=== PATIENT | female | born 1935 | race Caucasian/White ===

== ENCOUNTER 2016-09-14 22:39 | Emergency (ER) | payer OTHER, BC ==
[~2016-09-14] VITALS: Ht 149.9 cm; Wt 74.8 kg
[~2016-09-14 22:39] MED LIST: BENADRYL ALLERG25 MG; IRON325 PO; LASIX 40 MG TAB40 M2 PO; LEVAQUIN 500 M500 M2 PO; MEDROL DOSPAK21 TAB PO; POTASSIUM20 PO; PROTONIX40 M4 PO; SYNTHROID300 MCG PO; TESSALON PERLE100 MG PO; VENTOLIN HFA 1818 GM INH; ZPAK
== END 2016-09-15 00:56 | disposition home or self-care (01) ==
LOC: ER 22:39
DX: S01.01XA Laceration without foreign body of scalp, initial encounter (principal); S40.011A Contusion of right shoulder, initial encounter; F10.99 Alcohol use, unspecified with unspecified alcohol-induced disorder; Z90.10 Acquired absence of unspecified breast and nipple; Z98.890 Other specified postprocedural states; W01.198A Fall on same level from slipping, tripping and stumbling with subsequent striking against other object, initial encounter; Y93.89 Activity, other specified; Y92.89 Other specified places as the place of occurrence of the external cause; Y99.8 Other external cause status

== ENCOUNTER → 2016-11-01 | Outpatient (CLI) | payer OTHER, BC ==
[2016-11-01 11:27] LABS: CREATININE 0.7 mg/dL (0.6-1.0)
== END ==
LOC: CAT 10:47
PROVIDERS: Family Medicine
DX: J43.9 Emphysema, unspecified (principal); K80.20 Calculus of gallbladder without cholecystitis without obstruction; K20.9 Esophagitis, unspecified; R79.89 Other specified abnormal findings of blood chemistry

== ENCOUNTER 2018-07-14 18:14 | Emergency (ER) | payer OTHER, BC ==
[~2018-07-14] VITALS: Ht 149.9 cm; Wt 68.0 kg
[2018-07-14 22:19] VITALS: BP 141/66
== END 2018-07-14 21:15 | disposition home or self-care (01) ==
LOC: ER 18:14
DX: S01.411A Laceration without foreign body of right cheek and temporomandibular area, initial encounter (principal); Z90.49 Acquired absence of other specified parts of digestive tract; Z87.01 Personal history of pneumonia (recurrent); Z90.13 Acquired absence of bilateral breasts and nipples; W18.39XA Other fall on same level, initial encounter; Y93.89 Activity, other specified; Y92.89 Other specified places as the place of occurrence of the external cause; Y99.8 Other external cause status

== ENCOUNTER 2018-11-11 18:09 | Emergency (ER) | payer OTHER, BC ==
[~2018-11-11] VITALS: Ht 152.4 cm; Wt 73.9 kg
[2018-11-11 19:25] LABS: ABSOLUTE NEUTROPHILS 5.6 thou/uL (1.4-8.2); BASOPHILS 0.7 % (0.0-2.0); EOSINOPHILS 1.9 % (0.0-3.0); HEMATOCRIT 34.6 % (37.0-47.0); HEMOGLOBIN 11.8 gm/dL (12.0-15.0); LYMPHOCYTES 15.4 % (24.0-44.0); MCHC 34.1 g/dL (28.0-37.0); MCV 90.8 fL (80.0-100.0); MONOCYTES 6.8 % (1.0-8.0); PLATELET COUNT 264 thou/uL (150-400); POLYS 75.2 % (36.0-66.0); RBC 3.81 mil/uL (4.20-5.00); RDW 13.3 % (10.5-14.5); WBC 7.4 thou/uL (4.0-11.0)
[2018-11-11 19:35] LABS: ANION GAP 5 mmol/L (7-16); BUN 15 mg/dL (7-18); CALCIUM 9.4 mg/dL (8.5-10.1); CHLORIDE 100 mmol/L (98-107); CO2 28 mmol/L (21-32); CREATININE 0.8 mg/dL (0.6-1.0); GLUCOSE 124 mg/dL (74-106); POTASSIUM 4.3 mmol/L (3.5-5.1); SODIUM 133 mmol/L (136-145)
[2018-11-11] MEDS ORDERED: FISH OIL 1,001000 M2 PO (19:40)
[2018-11-11 19:45] LABS: ALBUMIN 3.6 g/dL (3.4-5.0); LIPASE 126 U/L (73-393); SGOT 24 U/L (15-37); SGPT 14 U/L (30-65); TOTAL BILIRUBIN 0.7 mg/dL (<0.1-1.0); TOTAL PROTEIN 7.8 g/dL (6.4-8.2); TROPONIN-I <0.06 ng/mL (<0.06)
[2018-11-11 20:41] LABS: URINE BILIRUBIN NEGATIVE (Negative); URINE BLOOD NEGATIVE (Negative); URINE CLARITY CLEAR; URINE COLOR YELLOW; URINE GLUCOSE-RANDOM* NEGATIVE (Negative); URINE KETONES NEGATIVE (Negative); URINE LEUKOCYTES-REFLEX 1+ (Negative); URINE NITRITE-REFLEX NEGATIVE (Negative); URINE PROTEIN (DIPSTICK) NEGATIVE (Negative); URINE SPECIFIC GRAVITY 1.025 (1.005-1.035); URINE UROBILINOGEN 0.2 E.U./dl (0.2-1.0)
[2018-11-11 20:47] LABS: MUCUS 0-3 Light strn/LPF (None Seen); SQUAMOUS >10 Many /LPF (0-3)
[2018-11-11 20:48] LABS: BACTERIA-REFLEX 1-9 Few /HPF (None Seen); CASTS None Seen /LPF (None Seen); CRYSTALS None Seen /LPF (None Seen); URINE RBC 0-2 Rare /HPF (0-2); URINE WBC-REFLEX >25 Many /HPF (0-5)
[2018-11-11] MEDS ORDERED: KEFLEX500 M1 PO (21:08)
[2018-11-11 21:20] VITALS: BP 131/67
--- NOTE | 2018-11-12 08:16 | EKG ---
[place] [address] [facility] 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: PAULINA : 1935 Requested By: Rebel Goodman Order Number: [id number] MD: Roney Perez Measurements Intervals [place] Rate: 89 P: 59 [place]: 183 QRS: -24 QRSD: 84 T: 78 QT: 373 QTc: 454 Interpretive Statements Sinus rhythm Ventricular premature complex Possible anterior infarct, age indeterminate Inferior infarct, age indeterminate Compared to ECG 11/02/2015 07:02:13 Ventricular premature complex(es) now present Left ventricular hypertrophy now present Sinus tachycardia no longer present Inferior Q waves more prominent Electronically Signed On 11-12-2018 8:16:31 CDT by Rnoey Perez [email or web address] <ELECTRONICALLY SIGNED> By: Roney Perez MD, [facility] 11/12/18 0816 1836 1836 Roney Perez MD, [facility] /EPI
== END 2018-11-11 21:21 | disposition home or self-care (01) ==
LOC: ER 18:09
PROVIDERS: Emergency Medicine
DX: N39.0 Urinary tract infection, site not specified (principal); R55 Syncope and collapse; Z90.49 Acquired absence of other specified parts of digestive tract; Z90.13 Acquired absence of bilateral breasts and nipples

== ENCOUNTER → 2018-11-21 | Outpatient (CLI) | payer OTHER, BC ==
[~2018-11-21] MED LIST changes: +FISH OIL 1,001000 M2 PO; +KEFLEX500 M1 PO
== END ==
LOC: ULTRA 09:41
DX: K80.20 Calculus of gallbladder without cholecystitis without obstruction (principal); R16.0 Hepatomegaly, not elsewhere classified

== ENCOUNTER → 2018-11-29 | Outpatient (CLI) | payer OTHER, BC | LOC: RAD 16:40 | DX: J98.4 Other disorders of lung (principal); R07.9 Chest pain, unspecified ==

== ENCOUNTER 2018-12-14 20:32 | Emergency (ER) | payer OTHER, BC ==
[~2018-12-14] VITALS: Ht 152.4 cm; Wt 73.9 kg
[2018-12-14] MEDS ORDERED: ACETAMINOPHEN-1 EAC1 PO (21:10)
[2018-12-14] MEDS ORDERED: PRAVACHOL40 MG PO (21:10)
[2018-12-14 22:13] LABS: URINE BILIRUBIN NEGATIVE (Negative); URINE BLOOD NEGATIVE (Negative); URINE CLARITY CLEAR; URINE COLOR YELLOW; URINE GLUCOSE-RANDOM* NEGATIVE (Negative); URINE KETONES NEGATIVE (Negative); URINE LEUKOCYTES-REFLEX NEGATIVE (Negative); URINE NITRITE-REFLEX NEGATIVE (Negative); URINE PROTEIN (DIPSTICK) NEGATIVE (Negative); URINE SPECIFIC GRAVITY 1.025 (1.005-1.035); URINE UROBILINOGEN 0.2 E.U./dl (0.2-1.0)
[2018-12-14 22:22] LABS: ABSOLUTE NEUTROPHILS 5.2 thou/uL (1.4-8.2); BASOPHILS 1.3 % (0.0-2.0); EOSINOPHILS 1.3 % (0.0-3.0); HEMATOCRIT 31.9 % (37.0-47.0); HEMOGLOBIN 10.4 gm/dL (12.0-15.0); LYMPHOCYTES 25.4 % (24.0-44.0); MCH 30.6 pg (26.0-34.0); MCHC 32.7 g/dL (28.0-37.0); MCV 93.4 fL (80.0-100.0); MONOCYTES 8.1 % (1.0-8.0); PLATELET COUNT 314 thou/uL (150-400); POLYS 63.9 % (36.0-66.0); RBC 3.41 mil/uL (4.20-5.00); RDW 13.7 % (10.5-14.5); WBC 8.1 thou/uL (4.0-11.0)
[2018-12-14 22:34] LABS: ANION GAP 11 mmol/L (7-16); BUN 19 mg/dL (7-18); CALCIUM 9.6 mg/dL (8.5-10.1); CHLORIDE 101 mmol/L (98-107); CO2 24 mmol/L (21-32); CREATININE 0.8 mg/dL (0.6-1.0); GLUCOSE 102 mg/dL (74-106); POTASSIUM 3.7 mmol/L (3.5-5.1); SODIUM 136 mmol/L (136-145)
[2018-12-14 22:44] LABS: ALBUMIN 3.8 g/dL (3.4-5.0); LIPASE 113 U/L (73-393); SGOT 8 U/L (15-37); SGPT 8 U/L (30-65); TOTAL BILIRUBIN 0.5 mg/dL (<0.1-1.0); TOTAL PROTEIN 8.2 g/dL (6.4-8.2); TROPONIN-I <0.06 ng/mL (<0.06)
[2018-12-14 23:02] LABS: LARGE PLATELETS RARE
[2018-12-15] MEDS ORDERED: NORCO 5-325 TA1 EAC1 PO (02:28)
[2018-12-15 02:54] VITALS: BP 145/76
--- NOTE | 2018-12-16 14:14 | EKG ---
[place] [address] [email or web address] [address] ELECTROCARDIOGRAM REPORT Name: JENNA VALENCIA Room #: DEP [facility]#: [id number] ������������������ Admission: 12/14/18 ������������������ Attend Phys: Discharge: 12/15/18 ������������������ Date of : 39 Report #: [id number] ����������������������������������������������������������������� [id number] THIS REPORT FOR: //name// [facility] ED Test Date: 2018-12-14 Test Time: 20:58:50 Pat Name: JENNA VALENCIA Department: Room: Gender: F Control Director: WG : 1935 Requested By: Nghia Taveras Order Number: [id number] MD: Roney Perez Measurements Intervals [place] Rate: 96 P: 45 [place]: 157 QRS: -15 QRSD: 85 T: 73 QT: 346 QTc: 438 Interpretive Statements Sinus tachycardia Multiple ventricular premature complexes Left ventricular hypertrophy Poor septal R-wave progression Compared to ECG 11/11/2018 18:36:01 Premature ventricular complexes are now present Electronically Signed On 12-16-2018 14:13:58 CDT by Roney Perez [email or web address] ��������������������������������������������� <ELECTRONICALLY SIGNED> ���������������������������������������� By: Roney Perez MD, [facility] ��������������������������������������������� 12/16/18 1413 57 57 Roney Perez MD, [facility] /EPI
== END 2018-12-15 02:54 | disposition home or self-care (01) ==
LOC: ER 20:32
PROVIDERS: Emergency Medicine
DX: K80.20 Calculus of gallbladder without cholecystitis without obstruction (principal); Z90.49 Acquired absence of other specified parts of digestive tract; Z85.3 Personal history of malignant neoplasm of breast; Z90.13 Acquired absence of bilateral breasts and nipples

== ENCOUNTER 2018-12-16 19:21 | Inpatient (IN) | payer OTHER, BC ==
[~2018-12-16] VITALS: Ht 152.4 cm; Wt 73.9 kg
[2018-12-16 19:21] VITALS: BP 144/55
[~2018-12-16 19:21] MED LIST changes: +ACETAMINOPHEN-1 EAC1 PO; +NORCO 5-325 TA1 EAC1 PO; +PRAVACHOL40 MG PO
[2018-12-16 20:51] LABS: ABSOLUTE NEUTROPHILS 6.5 thou/uL (1.4-8.2); BASOPHILS 0.7 % (0.0-2.0); EOSINOPHILS 0.7 % (0.0-3.0); HEMATOCRIT 28.9 % (37.0-47.0); HEMOGLOBIN 9.6 gm/dL (12.0-15.0); LYMPHOCYTES 21.2 % (24.0-44.0); MCH 30.3 pg (26.0-34.0); MCHC 33.1 g/dL (28.0-37.0); MCV 91.6 fL (80.0-100.0); MONOCYTES 6.5 % (1.0-8.0); PLATELET COUNT 304 thou/uL (150-400); POLYS 70.9 % (36.0-66.0); RBC 3.15 mil/uL (4.20-5.00); RDW 13.8 % (10.5-14.5); WBC 9.2 thou/uL (4.0-11.0)
[2018-12-16 20:58] LABS: CALCIUM 9.4 mg/dL (8.5-10.1); CREATININE 0.8 mg/dL (0.6-1.0); POTASSIUM 3.3 mmol/L (3.5-5.1)
[2018-12-16 21:05] LABS: ALBUMIN 3.6 g/dL (3.4-5.0); TOTAL BILIRUBIN 0.4 mg/dL (<0.1-1.0); TOTAL PROTEIN 7.7 g/dL (6.4-8.2)
[2018-12-16 21:32] LABS: LARGE PLATELETS RARE
[2018-12-16 21:51] VITALS: BP 137/84
[2018-12-16 22:22] VITALS: BP 131/57
[2018-12-16 22:25] VITALS: BP 134/84
--- NOTE | 2018-12-17 04:32 | NUR ---
Patient arrived from the floor with daughter. AO*3; clam and pleasant; complains of pain in RUQ, 01/10. pain medication given and worked; paitent lying in bed with eyes closed, chest up and down. NPO after midnight, tolerating well. Lab reviewed. Will keep monitoring.
[2018-12-17 07:15] VITALS: BP 132/58
--- NOTE | 2018-12-17 15:41 | NUR ---
PT ADMITTED RELATED TO INTRACTABLE PAIN, LONNY. CM REVIEWED CHART AND SPOKE WITH CARE TEAM. CM MET WITH PT AT BEDSIDE THISDAY. PT IS A&O X4. CM ROLE INTRODUCED. PT INDICATED SHE LIVES IN A HOUSE ALONE WITH 1 STEP TO ENTER AND NO STEPS INSIDE. 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 PT INDICATED THAT SHE HADN'T USED ANY DME P[facility]TER LUGGAGE. PT INDICATED NOP DME OR HH HX. PT INIDCATED SHE PLANS TO RETURN HOME ONCE MEDICALLY STABLE. CM TO FOLOOW INDICATED WITH DC PLANNING. PT IS TO HAVE LAP LONNY TODAY AT 2:30.
--- NOTE | 2018-12-17 19:41 | NUR ---
PATIENT CAME BACK FORM SURGERY AT 1900, 4 LAP LONNY SITES, CLEAN, DRY, INTACT. REPORTING PAIN, ON A REGUALR DIET, ENCOURAGED TO EAT SO THAT PT CAN HAVE ORAL PAIN MEDS. REPORT GIVEN TO NIGHT NURSE. WILL CONTINUE TO ASSESS AND ASSIST WITH ADLs NEEDED.
[2018-12-17 19:55] VITALS: BP 144/64
[2018-12-17 23:42] VITALS: BP 134/118
[2018-12-18 03:34] VITALS: BP 146/71
--- NOTE | 2018-12-18 04:36 | NUR ---
ASSUMED CARE OF PT AT 1900HRS. THIS IS POST OP DAY 0. PT IS ALERT TO SELF AND PLEASANTLY CONFUSED. PT CALLS FOR HELP FREQUENTLY, CONSIDER MOVING PT CLOSER TO NURSES' STATION IF POSSIBLE. PT REPORTED SOME PAIN AND TREATED WITH PRN PAIN MEDS. LAP SITES X4 ARE INTACT. PT AMBULATED TO THE AND VOIDED. VSS AND NO S/S OF ACUTE DISTRESS. WILL CONTINUE TO MONITOR.
[2018-12-18 07:30] VITALS: BP 128/59
[2018-12-18 07:53] LABS: ABSOLUTE NEUTROPHILS 8.2 thou/uL (1.4-8.2); BASOPHILS 0.2 % (0.0-2.0); HEMATOCRIT 25.2 % (37.0-47.0); HEMOGLOBIN 8.6 gm/dL (12.0-15.0); LYMPHOCYTES 12.5 % (24.0-44.0); MCH 31.2 pg (26.0-34.0); MCHC 34.1 g/dL (28.0-37.0); MCV 91.6 fL (80.0-100.0); MONOCYTES 7.6 % (1.0-8.0); PLATELET COUNT 272 thou/uL (150-400); POLYS 79.7 % (36.0-66.0); RBC 2.75 mil/uL (4.20-5.00); RDW 13.2 % (10.5-14.5); WBC 10.2 thou/uL (4.0-11.0)
[2018-12-18 08:07] LABS: ALBUMIN 2.9 g/dL (3.4-5.0); CALCIUM 8.9 mg/dL (8.5-10.1); CREATININE 0.8 mg/dL (0.6-1.0); MAGNESIUM 1.6 mg/dL (1.8-2.4); PHOSPHORUS 2.8 mg/dL (2.5-4.9)
--- NOTE | 2018-12-18 14:17 | EKG ---
[address] [address] ELECTROCARDIOGRAM REPORT Name: JENNA VALENCIA Room #: 457- ADM IN M.R.#: [id number] ������������������ Admission: 12/16/18 ������������������ Attend Phys: Ld Reyes MD Discharge: ������������������ Date of : 39 Report #: [id number] ����������������������������������������������������������������� [id number] THIS REPORT FOR: //name// 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: CHIDI : 1935 Requested By: Handy Beyer Order Number: [id number] MD: Michael Dennis Measurements Intervals [place] Rate: 109 P: 83 [place]: 166 QRS: -18 QRSD: 86 T: 66 QT: 326 QTc: 440 Interpretive Statements Sinus tachycardia Left ventricular hypertrophy Anterior Q waves, possibly due to LVH Compared to ECG 12/14/2018 20:58:50 Q waves now present Ventricular premature complex(es) no longer present Electronically Signed On 12-18-2018 14:17:29 CDT by Michael Dennis [email or web address] ��������������������������������������������� <ELECTRONICALLY SIGNED> ���������������������������������������� By: Michael Dennis MD ��������������������������������������������� 12/18/18 1417 0910 0910 Michael Dennis MD /EPI
[2018-12-18 14:34] VITALS: BP 125/53
[2018-12-18 14:38] LABS: CALCIUM 9.4 mg/dL (8.5-10.1); CREATININE 0.7 mg/dL (0.6-1.0); MAGNESIUM 1.7 mg/dL (1.8-2.4); POTASSIUM 3.7 mmol/L (3.5-5.1)
[2018-12-18 15:34] VITALS: BP 125/53
--- NOTE | 2018-12-18 16:38 | NUR ---
CARE TEAM INDIATED THAT PT IS MEDICALLY STABLE TO DC HOME WITH NO NEEDS THIS DAY. NO OTHER CM INTERVENTION INDICATED. CASE CLOSED.
--- NOTE | 2018-12-18 20:10 | NUR ---
Received awake on bed. Due medications given as prescribed. A+O. On room air. Falls risk- falls bundle in place. On regular diet- tolerated well, no nausea, vomiting or abdominal pain noted. With NS at 80cc/hr infusing well at L hand. S/P Lap Appy- 4 surgical wounds with dermabond, C/D/I- no signs of infection noted. Pt with low potassium and low magnesium from AM lab draw- Dr Beyer aware and ordered oral Mg and K correction- medication given as prescribed. Tachycardia noted- EKG ordered by Dr Beyer- result relayed to Dr Beyer and Dr Reyes. With relative at bedside. Assisted in ADLs. Pt restless because she wants to go home- explained to her and relatives that still a/w discharge orders still. Dr Reyes called, lab draw to be done this PM- to call him back once results available then pt might go home if lab results are good- lab orders put in by Dr Reyes. Relayed results to Dr Reyes- pt can go home today- he'll put in discharge instructions. Called Dr Beyer for post op follow up and instructions and informed him that Dr Reyes is discharging pt. Discharge instructions, follow up schedule, post op follow up and instructions given and instructed to pt together with her daughter. IV removed. Pt fetched by volunteer transport, brought down via wheelchair with her personal belongings, drove home by her daughter.
--- NOTE | 2018-12-19 14:07 | PATH ---
[facility] [place] [address] [place] [address] PATHOLOGY RPT PROCEDURE Name: JENNA VALENCIA Room #: 457-P [facility] IN M.R.#: [id number] ������������������ Admission: 12/16/18 ������������������ Date of : 39 Discharge: 12/18/18 Report #: [id number] Path Case #: [id number] [facility] Accession Number: [id number] . 01 Material submitted: . gallbladder - GALLBLADDER . 01 Clinical history: . Symptomatic calculus of gallbladder without cholecystitis without obstruction . 02 Diagnosis: Gallbladder, cholecystectomy: - Mild chronic cholecystitis. - Cholelithiasis. . (IUV:mml; 12/19/2018) QL 12/19/2018 1037 Local . 02 Electronically signed: . Blossom Gleason MD, Pathologist NPI- [id number] . 01 Gross description: . The specimen is received in formalin, labeled "Jenna Valencia, gallbladder". Received is an intact gallbladder measuring 7.5 x 3.8 x 3.2 cm in greatest dimensions displaying a blue-akins serosal surface. Opening the specimen reveals a velvety, bile-stained mucosa with a gallbladder wall thickness of 0.1 cm. Calculi are present displaying a yellow-angel and smooth appearance, and no masses or lesions are noted grossly. Throat Cutter sections, to include the proximal margin, are submitted in cassette A1. (CAA; 12/18/2018) QA/QA 12/18/2018 1110 Local . 02 Pathologist provided ICD-10: K80.10 . 02 CPT . 534714 Specimen Comment: A courtesy copy of this report has been sent to Specimen Comment: [phone], . Specimen Comment: Report sent to / DR COLMENARES Performed at: [address], [place] [address] MD Trell Parnell MD Phone: [phone] Performed at: [address] [address] PATHOLOGY RPT PROCEDURE Name: JENNA VALENCIA LEVI Room #: 457-P DIS IN M.R.#: [id number] ������������������ Admission: 12/16/18 ������������������ Date of : 37 Discharge: 12/18/18 Report #: [id number] Path Case #: [id number] [facility] [address] [id number] MD Blossom Gleason MD Phone: [phone]
== END 2018-12-18 16:46 | disposition home or self-care (01) | DRG 418 ==
LOC: ER 19:21 → 4W 21:20 → EROBS 21:20 → 4W 22:10 → ENTRNSPT 12-18 16:28 → 4W 12-18 16:46
PROVIDERS: Physician Assistant; Surgery; ADMIT Family Medicine
PROC: 0FT44ZZ Resection of Gallbladder, Percutaneous Endoscopic Approach (ICD-10-PCS; principal; 2018-12-17)
DX: K80.10 Calculus of gallbladder with chronic cholecystitis without obstruction (principal); E44.1 Mild protein-calorie malnutrition; D64.9 Anemia, unspecified; E87.6 Hypokalemia; I50.9 Heart failure, unspecified; E83.42 Hypomagnesemia; Z87.01 Personal history of pneumonia (recurrent); Z79.899 Other long term (current) drug therapy; Z90.89 Acquired absence of other organs; Z90.13 Acquired absence of bilateral breasts and nipples; Z91.81 History of falling; Z87.440 Personal history of urinary (tract) infections; Z68.31 Body mass index [BMI] 31.0-31.9, adult
CPT/HCPCS: 10040; 10045; 50010; 50101; 50249; 50411; 50555; 50558; 51489; 52265; 52266; 53307; 53310; 53312; 54022; 54118; 55245; 56462; 56525; 56526; 62110; 62900; 70005

== ENCOUNTER 2018-12-21 11:17 | Inpatient (IN) | payer OTHER, BC ==
[~2018-12-21] VITALS: Ht 152.4 cm; Wt 65.8 kg
[2018-12-21 11:34] VITALS: BP 132/44
[2018-12-21 12:15] LABS: ABSOLUTE NEUTROPHILS 6.8 thou/uL (1.4-8.2); BASOPHILS 0.5 % (0.0-2.0); HEMATOCRIT 27.5 % (37.0-47.0); HEMOGLOBIN 9.3 gm/dL (12.0-15.0); LYMPHOCYTES 16.2 % (24.0-44.0); MCH 30.9 pg (26.0-34.0); MCHC 33.7 g/dL (28.0-37.0); MCV 91.8 fL (80.0-100.0); MONOCYTES 7.1 % (1.0-8.0); PLATELET COUNT 299 thou/uL (150-400); POLYS 75.2 % (36.0-66.0); RBC 2.99 mil/uL (4.20-5.00); RDW 13.9 % (10.5-14.5); WBC 9.1 thou/uL (4.0-11.0)
[2018-12-21] MEDS ORDERED: SYNTHROID175 MCG PO (12:26)
[2018-12-21 12:36] LABS: ALBUMIN 3.3 g/dL (3.4-5.0); CALCIUM 9.2 mg/dL (8.5-10.1); CREATININE 0.7 mg/dL (0.6-1.0); TOTAL BILIRUBIN 0.4 mg/dL (<0.1-1.0); TOTAL PROTEIN 7.2 g/dL (6.4-8.2)
[2018-12-21 16:31] VITALS: BP 140/63
--- NOTE | 2018-12-21 16:44 | NUR ---
1490 ED RN CALLED UNIT TO GIVE REPORT TO INPATIENT NURSE. ED NURSE WAS TOLD TO PRINT HAND OFF TOOL TO A DIFFERENT PRINTER AND INPATIENT NURSE WILL RETURN CALL FOR REPORT
--- NOTE | 2018-12-21 17:00 | NUR ---
PT RECALLED UNIT TO GIVE REPORT TO INPATIENT RN AND WAS PLACED ON HOLD FOR EXTENDED PERIOD OF TIME WITHOUT GETTING IN CONTACT WITH NURSE FOR REPORT
[2018-12-21 17:50] VITALS: BP 144/61
[2018-12-21 20:34] VITALS: BP 147/63
[2018-12-22 04:53] VITALS: BP 149/71
--- NOTE | 2018-12-22 07:43 | NUR ---
PROGRESS PT A/O X 4 IMPULSIVE AND FORGETFUL REPEATEDLY GETTING OOB AND SETTING OFF BED ALERT. RATES PAIN A 10 TO 12 HYDROCODONE GIVEN ORDERED WITH EFFECT. DENIES NAUSEA AND NO VOMITING NOTED. VOIDING QS IN TOLIET. BS POSITIVE, REPORTS FLATUS 4 LAP SITES WELL APPROXIMATED ALMOST HEALED CONTINUE ALARMS AND ASSIST NEEDED.
[2018-12-22] MEDS ORDERED: PANTOPRAZOLE SO40 M1 PO (07:52)
[2018-12-22 08:00] VITALS: BP 140/51
[2018-12-22 13:11] VITALS: BP 140/51
--- NOTE | 2018-12-22 13:48 | NUR ---
Assumed pt care this am, VS have been stable. Pt uses is resistant to using a walker and needs to be coached on how to use and transfer safely. No nausea or vomiting has been noted, pt denies any pain or discomfort. Pt partially ate her breakfast and lunch. Pt also had a small bowel movement this am. DC orders given, instructions and prescriptions given to the pt and daughter. IV removed, pt is now DC.
--- NOTE | 2018-12-22 14:54 | NUR ---
LATE ENTRY: ER NURSE CALLED TO GIVE REPORT AND WAS TOLD A CALL WILL BE GIVEN BACK.THIS NURSE CALLED BACK WITHIN A REASONABLE AMOUNT OF TIME, 20 MINS.
--- NOTE | 2018-12-22 14:58 | NUR ---
LATE ENTRY: ASSUMED CARE OF PATIENT APPROX 1730. PT A&OX4, VSS, PAIN IN ABD. PT DENIED SOA, NO SIGNS OF DISTRESS. PT WAS HARD OF HEARING AND DAUGHTER ASSISTED IN ADMISSION QUESTIONS. PATIENT ASSISTED TO BEDSIDE COMMODE, 1 ASSIST. PATIENT RESTED IN BED BY TIME OF SHIFT CHANGE 1844.
== END 2018-12-22 13:58 | disposition home or self-care (01) | DRG 392 ==
LOC: ER 11:17 → EROBS 16:32 → 4S 17:10
PROVIDERS: Nurse Practitioner; ADMIT Family Medicine
DX: K29.80 Duodenitis without bleeding (principal); Z87.01 Personal history of pneumonia (recurrent); Z90.49 Acquired absence of other specified parts of digestive tract; Z90.13 Acquired absence of bilateral breasts and nipples; Z79.899 Other long term (current) drug therapy
CPT/HCPCS: 10195

== ENCOUNTER 2019-01-24 08:31 | Emergency (ER) | payer OTHER, BC ==
[~2019-01-24] VITALS: Ht 152.4 cm; Wt 65.8 kg
[~2019-01-24 08:31] MED LIST changes: +PANTOPRAZOLE SO40 M1 PO; +SYNTHROID175 MCG PO
[2019-01-24 09:40] LABS: URINE BILIRUBIN NEGATIVE (Negative); URINE BLOOD NEGATIVE (Negative); URINE CLARITY CLEAR; URINE COLOR YELLOW; URINE GLUCOSE-RANDOM* NEGATIVE (Negative); URINE KETONES NEGATIVE (Negative); URINE LEUKOCYTES-REFLEX NEGATIVE (Negative); URINE NITRITE-REFLEX NEGATIVE (Negative); URINE PROTEIN (DIPSTICK) NEGATIVE (Negative); URINE UROBILINOGEN 0.2 E.U./dl (0.2-1.0)
[2019-01-24 10:15] LABS: ABSOLUTE NEUTROPHILS 5.5 thou/uL (1.4-8.2); BASOPHILS 0.4 % (0.0-2.0); EOSINOPHILS 1.2 % (0.0-3.0); HEMATOCRIT 28.6 % (37.0-47.0); HEMOGLOBIN 9.5 gm/dL (12.0-15.0); LYMPHOCYTES 17.9 % (24.0-44.0); MCH 30.4 pg (26.0-34.0); MCHC 33.3 g/dL (28.0-37.0); MCV 91.3 fL (80.0-100.0); PLATELET COUNT 282 thou/uL (150-400); POLYS 71.5 % (36.0-66.0); RBC 3.13 mil/uL (4.20-5.00); RDW 13.5 % (10.5-14.5); WBC 7.7 thou/uL (4.0-11.0)
[2019-01-24 10:29] LABS: ANION GAP 7 mmol/L (7-16); BUN 17 mg/dL (7-18); CALCIUM 9.3 mg/dL (8.5-10.1); CHLORIDE 103 mmol/L (98-107); CO2 30 mmol/L (21-32); CREATININE 0.8 mg/dL (0.6-1.0); GLUCOSE 113 mg/dL (74-106); POTASSIUM 3.1 mmol/L (3.5-5.1); SODIUM 140 mmol/L (136-145)
[2019-01-24 10:37] LABS: ALBUMIN 3.4 g/dL (3.4-5.0); MAGNESIUM 1.9 mg/dL (1.8-2.4); SGOT 15 U/L (15-37); SGPT 11 U/L (30-65); TOTAL BILIRUBIN 0.6 mg/dL (<0.1-1.0); TOTAL PROTEIN 7.3 g/dL (6.4-8.2); TROPONIN-I <0.06 ng/mL (<0.06)
[2019-01-24 11:34] VITALS: BP 165/80
--- NOTE | 2019-01-25 08:33 | EKG ---
[place] [address] [facility] [place] [address] ELECTROCARDIOGRAM REPORT Name: JENNA VALENCIA Room #: [facility]#: [id number] Admission: 01/24/19 Attend Phys: Discharge: 01/24/19 Date of : 39 Report #: [id number] THIS REPORT FOR: //name// 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: PAULINA : 1935 Requested By: Oracio Lockhart Order Number: [id number] MD: Roney Perez Measurements Intervals [place] Rate: 95 P: 65 [place]: 160 QRS: 1 QRSD: 85 T: 65 QT: 370 QTc: 465 Interpretive Statements Sinus rhythm Multiple ventricular premature complexes Left ventricular hypertrophy Compared to ECG 12/18/2018 09:10:16 Ventricular premature complex(es) now present Sinus tachycardia no longer present Electronically Signed On 01-25-2019 8:33:37 CDT by Roney Perez [email or web address] <ELECTRONICALLY SIGNED> By: Roney Perez MD, [facility] 01/25/19 0833 6 6 Roney Perez MD, [facility] /EPI
== END 2019-01-24 11:36 | disposition home or self-care (01) ==
LOC: ER 08:31
PROVIDERS: Emergency Medicine
DX: S09.8XXA Other specified injuries of head, initial encounter (principal); D64.9 Anemia, unspecified; E87.6 Hypokalemia; R42 Dizziness and giddiness; F03.90 Unspecified dementia, unspecified severity, without behavioral disturbance, psychotic disturbance, mood disturbance, and anxiety; Z90.13 Acquired absence of bilateral breasts and nipples; Z90.49 Acquired absence of other specified parts of digestive tract; W18.39XA Other fall on same level, initial encounter; Y92.89 Other specified places as the place of occurrence of the external cause; Y93.01 Activity, walking, marching and hiking; Y99.8 Other external cause status

== ENCOUNTER 2019-02-07 00:29 | Emergency (ER) | payer OTHER, BC ==
[~2019-02-07] VITALS: Ht 152.4 cm; Wt 65.8 kg
[2019-02-07 01:01] LABS: ABSOLUTE NEUTROPHILS 4.5 thou/uL (1.4-8.2); BASOPHILS 1.1 % (0.0-2.0); EOSINOPHILS 1.8 % (0.0-3.0); HEMATOCRIT 30.3 % (37.0-47.0); HEMOGLOBIN 9.9 gm/dL (12.0-15.0); LYMPHOCYTES 22.5 % (24.0-44.0); MCH 29.3 pg (26.0-34.0); MCHC 32.6 g/dL (28.0-37.0); MCV 89.8 fL (80.0-100.0); PLATELET COUNT 296 thou/uL (150-400); POLYS 66.6 % (36.0-66.0); RBC 3.37 mil/uL (4.20-5.00); RDW 13.7 % (10.5-14.5); WBC 6.7 thou/uL (4.0-11.0)
[2019-02-07 01:04] LABS: ANION GAP 12 mmol/L (7-16); BUN 14 mg/dL (7-18); CHLORIDE 102 mmol/L (98-107); CO2 26 mmol/L (21-32); CREATININE 0.7 mg/dL (0.6-1.0); GLUCOSE 105 mg/dL (74-106); POTASSIUM 3.1 mmol/L (3.5-5.1); SODIUM 140 mmol/L (136-145)
[2019-02-07 01:14] LABS: ALBUMIN 3.4 g/dL (3.4-5.0); DIRECT BILIRUBIN 0.1 mg/dL (<0.1-0.3); LIPASE 124 U/L (73-393); SGOT 19 U/L (15-37); SGPT 11 U/L (30-65); TOTAL BILIRUBIN 0.5 mg/dL (<0.1-1.0); TOTAL PROTEIN 7.3 g/dL (6.4-8.2); TROPONIN-I <0.06 ng/mL (<0.06)
[2019-02-07 01:28] LABS: URINE BILIRUBIN NEGATIVE (Negative); URINE BLOOD NEGATIVE (Negative); URINE CLARITY CLEAR; URINE COLOR YELLOW; URINE GLUCOSE-RANDOM* NEGATIVE (Negative); URINE KETONES NEGATIVE (Negative); URINE LEUKOCYTES-REFLEX NEGATIVE (Negative); URINE NITRITE-REFLEX NEGATIVE (Negative); URINE PROTEIN (DIPSTICK) NEGATIVE (Negative); URINE SPECIFIC GRAVITY 1.015 (1.005-1.035); URINE UROBILINOGEN 0.2 E.U./dl (0.2-1.0)
[2019-02-07] MEDS ORDERED: MECLIZINE HCL25 MG PO (02:55)
[2019-02-07 03:19] VITALS: BP 165/69
--- NOTE | 2019-02-08 12:20 | EKG ---
[address] [place] [address] ELECTROCARDIOGRAM REPORT Name: JENNA VALENCIA Room #: [facility]#: [id number] Admission: 02/07/19 Attend Phys: Discharge: 02/07/19 Date of : 39 Report #: [id number] THIS REPORT FOR: //name// [facility] ED Test Date: 2019-02-07 Test Time: 00:52:53 Pat Name: JENNA VALENCIA Department: Room: Gender: F Java Manager: evert : 1935 Requested By: Kaylee Arroyo Order Number: [id number] MD: Dejon Corona Measurements Intervals [place] Rate: 96 P: 80 [place]: 182 QRS: -11 QRSD: 85 T: 78 QT: 388 QTc: 491 Interpretive Statements Sinus rhythm Atrial premature complex Probable LVH with secondary repol abnrm Anterior Q waves, possibly due to LVH Compared to ECG 01/24/2019 09:37:33 Atrial premature complex(es) now present Q waves now present Ventricular premature complex(es) no longer present Electronically Signed On 02-08-2019 12:20:08 SECURITY INCIDENT RESPONSE SPECIALIST by Dejon Coroan [email or web address] <ELECTRONICALLY SIGNED> By: Dejon Corona MD 02/08/19 1220 005 0052 Dejon Corona MD /EPI
== END 2019-02-07 03:20 | disposition home or self-care (01) ==
LOC: ER 00:29
PROVIDERS: Emergency Medicine
DX: R42 Dizziness and giddiness (principal); R11.0 Nausea; Z90.49 Acquired absence of other specified parts of digestive tract; Z90.13 Acquired absence of bilateral breasts and nipples

== ENCOUNTER 2020-06-09 15:03 | Inpatient (IN) | payer OTHER, BC ==
[~2020-06-09] VITALS: Ht 152.4 cm; Wt 64.0 kg
[~2020-06-09 15:03] MED LIST changes: +K-DUR 20 MEQ T20 MEQ PO; +LEVO-T100 MCG PO; +MECLIZINE HCL25 MG PO; +PROTONIX40 M2 PO; +ZOFRAN4 MG PO
[2020-06-09 15:06] VITALS: BP 134/51
[2020-06-09] MEDS ORDERED: ARICEPT10 M1 PO (15:23)
--- NOTE | 2020-06-09 16:19 | EKG ---
[address] [place] [address] ELECTROCARDIOGRAM REPORT Name: JENNA VALENCIA Room #: [facility]#: [id number] Admission: 06/09/20 Attend Phys: Discharge: Date of : 39 Report #: [id number] [facility] ED Test Date: 2020-06-09 Test Time: 15:36:21 Pat Name: JENNA VALENCIA Department: Room: Gender: F Butter Wrapper: KOMAL CASAREZ : 1935 Requested By: Kaylee Arroyo Order Number: [id number] MD: Philippe Simeon Measurements Intervals [place] Rate: 89 P: -14 [place]: 171 QRS: -25 QRSD: 87 T: 129 QT: 366 QTc: 446 Interpretive Statements Sinus rhythm LVH with secondary repolarization abnormality Inferior infarct, old Anterior infarct, old Compared to ECG 02/07/2019 00:52:53 Myocardial infarct finding now present Atrial premature complex(es) no longer present Q waves no longer present Electronically Signed On 06-09-2020 16:19:45 ALUMINUM MOLDER by Philippe Simeon [email or web address] <ELECTRONICALLY SIGNED> By: Philippe Simeon MD, [facility] 06/09/20 1619 1536 1536 Philippe Simeon MD, [facility] /EPI
[2020-06-09 16:26] LABS: ABSOLUTE NEUTROPHILS 8.8 thou/uL (1.4-8.2); BASOPHILS 0.4 % (0.0-2.0); EOSINOPHILS 0.1 % (0.0-3.0); HEMATOCRIT 34.9 % (37.0-47.0); HEMOGLOBIN 11.6 gm/dL (12.0-15.0); MCH 30.3 pg (26.0-34.0); MCHC 33.3 g/dL (28.0-37.0); MCV 90.9 fL (80.0-100.0); MONOCYTES 5.9 % (1.0-8.0); POLYS 87.6 % (36.0-66.0); RBC 3.84 mil/uL (4.20-5.00); RDW 15.7 % (10.5-14.5)
[2020-06-09 16:28] VITALS: BP 109/68
[2020-06-09 16:45] LABS: ANION GAP 9 mmol/L (7-16); BUN 13 mg/dL (7-18); CALCIUM 8.9 mg/dL (8.5-10.1); CHLORIDE 100 mmol/L (98-107); CO2 34 mmol/L (21-32); CREATININE 1.2 mg/dL (0.6-1.0); GLUCOSE 113 mg/dL (74-106); SODIUM 143 mmol/L (136-145); TROPONIN-I <0.06 ng/mL (<0.06)
[2020-06-09 16:50] LABS: LARGE PLATELETS OCCASIONAL; PLATELET COUNT 222 thou/uL (150-400)
[2020-06-09 16:53] LABS: POTASSIUM 2.1 mmol/L (3.5-5.1)
[2020-06-09 17:41] VITALS: BP 147/67
[2020-06-09 18:06] VITALS: BP 139/69
--- NOTE | 2020-06-09 19:15 | NUR ---
06/09/20 ADMITTED PATIENT TO ROOM 452 AT 1830. RIGHT AC IV AND LEFT HAND IV IN PLACE ON ARRIVAL. REPORT FROM ER NURSE SUNNI. 20 MEQ IV POTASSIUM RUNNING ON ARRIVAL. VITAL SIGNS STABLE. PATIENT'S DAUGHTER PRESENT BRIEFLY, LEFT FOR HOME WITH PLAN TO RETURN TO HOSPITAL TOMORROW. REPORT GIVEN TO ROTO MIXER OPERATOR NURSE.
[2020-06-09 20:00] VITALS: BP 124/62
--- NOTE | 2020-06-10 02:04 | NUR ---
PT IS A/O X1 AND IS ON BEDREST. W/C BOUND AT HOME. PT IS PLEASANT AND COOPERATIVE. HOOPA. ROOM AIR. INCONTINENT OF BOWEL AND BLADDER. NO BM THIS NOC. VSS. AFEBRILE. DENIES ANY C/O PAIN OR DISCOMFORT. DISCHARGED 2 IVS THIS NOC ACCIDENTALLY WITH BEING CONFUSED AND NOT BEING ABLE TO UNDERSTAND WHAT THEY WERE. REMOVED WITH CATHETER INTACT. MEDICATIONS GIVEN DIRECTED PER MAR. IN ROOM NEAR NURSES STATION WITH FREQUENT ROUNDING. FALL PRECAUTIONS IN PLACE, CALL LIGHT IS WITHIN REACH. WILL CONTINUE TO MONITOR.
[2020-06-10 06:02] LABS: CALCIUM 8.5 mg/dL (8.5-10.1); CREATININE 1.1 mg/dL (0.6-1.0); MAGNESIUM 1.7 mg/dL (1.8-2.4)
[2020-06-10 06:13] LABS: POTASSIUM 2.3 mmol/L (3.5-5.1)
--- NOTE | 2020-06-10 12:29 | NUR ---
PT ADMITTED RELATED TO SYNCOPE. CM REVIEWED CHART AND SPOKE WITH CARE TEAM. CM MET WITH PT AND DTR AT BEDSIDE THIS DAY. PT'S DTR ANSWERED ALL ASSESSMENT QUESTIONS. SHE INDICATED THAT PT RESIDES IN A HOUSE WITH HER AND HER SON. SHE INDICATED THAT THERE IS ONE STEP TO ENTER AND NO STEPS PT USES INSIDE. SHE INDICATED THAT PT HAD BEEN USING A WC IN THE HOME TO ASSIST WITH MOBILITY. FAMILY ASSISTING WITH TRANSFERS. DTR INDICATED THAT THERE IS ALWAYS SOMEONE WIHT PT. SHE INDICATED NO HH HX AND NO SKILLED POST ACUTE CARE STAYS. DTR INDICATED THAT THEY ANTICIPATE PT RETURNING HOME ONCE MEDICALLY STABLE. CM TO FOLLOW INDICATED WITH DC PLANNING.
--- NOTE | 2020-06-10 16:13 | NUR ---
ASSUMED CARE AT 0700. PATIENT SLOWLY PROGRESSING TOWARDS THE PLAN OF CARE EVIDENCED BY INCREASED ALERTNESS AND POTASSIUM REACHING NORMAL LEVELS.
[2020-06-10 20:04] VITALS: BP 113/56
--- NOTE | 2020-06-11 03:02 | NUR ---
PT CARE ASSUMED WITH PT IN BED .PT IS ALERT AND ORIENTED TO SELF.PT IS CONFUSE.PT HAS A LT LIMB ALERT.PT IS FORGETFUL BUT ABLE TO BE REDIRECTED AND FOLLOWS COMMANDS..PT IS INCONTINENT TO BOWEL AND BLADDER AND HAS SOME REDNESS ON BOTTOM WITH BARRIER CREAM .IV ACCESS ON RT WRIST WITH NS AT 100CC/HR.WILL CONTINUE TO MONITOR
[2020-06-11 08:11] LABS: CALCIUM 8.1 mg/dL (8.5-10.1); CREATININE 0.9 mg/dL (0.6-1.0); POTASSIUM 4.5 mmol/L (3.5-5.1)
[2020-06-11 08:26] VITALS: BP 153/87
--- NOTE | 2020-06-11 12:35 | NUR ---
CARE TEAM INDICATED THAT WE ARE WORKING TO CORRECT PT'S ELECTROLYTES. THERAPY TEAM INDICATED THAT PT WOULD BE SAFE TO RETURN HOME TO SELF CARE WITH FAMILY ASSIST ONCE MEDICALLY STABLE. CM TO FOLLOW INDICATED WITH DC PLANNING.
--- NOTE | 2020-06-11 14:36 | NUR ---
PT A&O TO SELF. PATIENT PARTICIPATED WITH PT AND UP TO RECLINER. DAUGHTER AT BEDSIDE. PATIENT IMPULSIVE THIS AM, BUT ONCE PLACED IN RECLINER NO ISSUES. DAUGHTER AT BEDSIDE. ELECTROLYTE PROTOCOL ORDERED. IV PATENT RIGHT WRIST. ZGUARD PLACED ON BUTTOCKS. NO SIGNS OF DISTRESS. WILL CONTINUE TO MONITOR.
[2020-06-11 15:51] VITALS: BP 145/74
[2020-06-11 19:14] VITALS: BP 150/69
--- NOTE | 2020-06-12 02:30 | NUR ---
PT CARE ASSUMED WITH PT WATCHING TV.PT IS A/O TO SELF.PT IS CONFUSE.PT IS INCONTINENT TO B/B.PT HAS A LT ARM LIMB ALERT.IV ACCESS ON RT WRIST WITH NS AT 100CC/HR.PT IS ON ROOM.PT APPEARED TO BE NO ACUTE DISTESS.WILL CONTINUE TO MONITOR
[2020-06-12 10:59] VITALS: BP 150/69
--- NOTE | 2020-06-12 11:02 | NUR ---
CARE TEAM INDICATED THAT PT IS MEDICALLY STABLE TO DC HOME THIS DAY. CM SPOKE WITH PT'S DTR SHU AND SHE INDICATED THAT THEY WOULD PREFER FOR PT TO JUST RETURN HOME. THEY AREN'T INTERESTED IN SKILLED POST ACUTE CARE STAY. DTR RECEPTIVE TO HH. SHE INDICATED NO PREFERENCE IN PROVIDER. REFERRAL SENT TO [facility]. PT'S DTR TO PROVIDE TRANSPORT HOME. NO OTHER CM INTERVENTION INDICATED. CASE CLOSED.
[2020-06-12 12:06] VITALS: BP 114/67
--- NOTE | 2020-06-12 12:38 | NUR ---
PT A&O TO SELF, VSS, DENIES PAIN. PATIENT DENIES DIZZINESS. PATIENT UP TO RECLINER WITH PT. PATIENT PULLED IV OUT THIS MORNING. PATIENT HAS DISCHARGE ORDERS TO GO HOME WITH HOME HEALTH. DAUGHTER AT BEDSIDE. NO SIGNS OF DISTRESS. WILL CONTINUE TO MONITOR.
--- NOTE | 2020-06-16 14:14 | 2DMMODE ---
[facility] [place] [address] 2 D/M-MODE ECHOCARDIOGRAM Name: JENNA VALENCIA Room #: 452-P [facility] IN M.R.#: [id number] Admission: 06/09/20 Attend Phys: Ld Reyes MD Discharge: 06/12/20 Date of : 39 Report #: [id number] THIS REPORT FOR: cc: Ld Reyes MD, Neal A. MD Santiago, Patrick MD [facility] Diane Nicholson MD ~ Sex/Age : F/84Y Height/Weight : 152.4cm/64.0kg Patient Name : JENNA VALENCIA Study Date : 2020-06-11 BSA : 1.61? Requesting Name : ECHO STANDARD W/O CONTRAST Date of : 1935 Request Doctor : DIANE NICHOLSON Department : CARD --< Approved Report > Study performed: 06/11/2020 07:01:50 EXAM: Comprehensive 2D, Doppler, and color-flow Echocardiogram Patient Location: Bedside Room #: 452 Status: routine BSA: 1.61 HR: 100 bpm BP: 113/56 mmHg Rhythm: Tachycardia Other Information Study Quality: Adequate Indications Syncope. 2D Dimensions RVDd: 29.98 mm IVSd: 10.02 (7~11mm) LVOT Diam: 18.89 (18~24mm) LVDd: 43.50 mm PWd: 8.75 (7~11mm) Ascending Ao: 27.01 (22~36mm) LVDs: 32.22 (25~40mm) Aortic Root: 33.92 mm Volumes Left Atrial Volume (Systole) [facility] [email or web address] [address] 2 D/M-MODE ECHOCARDIOGRAM Name: JENNA VALENCIA Room #: 452-P [facility] IN [facility]#: [id number] Admission: 06/09/20 Attend Phys: Ld Reyes, Discharge: 06/12/20 Date of : 39 Report #: [id number] Single Plane 4CH: 41.86 mL Single Plane 2CH: 64.72 mL LA ESV Index: 35.00 mL/m2 Aortic Valve AoV Peak Celestino.: 2.16 m/s AO Peak Gr.: 18.72 mmHg LVOT Max P.23 mmHg AO Mean Gr.: 9.51 mmHg AO V2 Mean: 1.46 m/s LVOT Max V: 1.03 m/s AO V2 VTI: 39.83 cm GALILEO Vmax: 1.33 cm2 Pulmonary Valve PV Peak Celestino.: 0.71 m/s PV Peak Gr.: 2.04 mmHg Tricuspid Valve RAP Estimate: 5.00 mmHg Left Ventricle The left ventricle is normal size. Mild basal septal hypertrophy is present. Left ventricular systolic function is mildly decreased. LVEF is 45-50%. This study is not technically sufficient to allow evaluation of the LV diastolic function. Right Ventricle The right ventricle is normal size. The right ventricular systolic function is normal. Atria Left atrium is mildly dilated. The right atrium size is normal. Aortic Valve Aortic valve is moderately calcified. Mild aortic regurgitation. Mild aortic stenosis. GALILEO by continuity equation is 1.4cm2. Peak pressure gradient of 19mmHg; mean of 9mmHg. Mitral Valve Moderate mitral annular calcification. Mild mitral regurgitation. No evidence of mitral valve stenosis. Tricuspid Valve The tricuspid valve is normal in structure. There is no tricuspid valve regurgitation noted. Unable to assess PA pressure. Pulmonic Valve Pulmonic valve is not well visualized. [facility] [address] [place] [address] 2 D/M-MODE ECHOCARDIOGRAM Name: JENNA VALENCIA Room #: [address] [place] [address] [place] ..#: [id number] Admission: 06/09/20 Attend Phys: Ld Reyes, Discharge: 06/12/20 Date of : 39 Report #: [id number] Great Vessels The aortic root is normal in size. The ascending aorta is normal in size. IVC is normal in size and collapses >50% with inspiration. Pericardium There is no pericardial effusion. <Conclusion> Normal left ventricular size with mild basal hypertrophy Mild global hypokinesis ejection fraction 45 50 % Normal right ventricular size/function Mildly dilated left atrium Color-flow Doppler study was performed of the aortic/mitral/tricuspid/pulmonary valve Aortic valve moderately calcified Mild aortic valve stenosis aortic valve area 1.4 cm and a mean gradient of 9 mmHg Moderate mitral annular calcification Mild mitral valve insufficiency No evidence of tricuspid valve insufficiency Normal aortic root size Normal IVC size and response to respiration No pericardial effusion Electronically Approved : 06/16/2020 14:11:12 By: [id number] Philippe Simeon MD, [facility] /
--- NOTE | 2020-06-24 15:17 | TEE ---
[facility] [place] [address] TRANSESOPHAGEAL ECHOCARDIOGRAM Name: JENNA VALENCIA Room #: 452-P [facility] IN M.R.#: [id number] Admission: 06/09/20 Attend Phys: Ld Reyes MD Discharge: 06/12/20 Date of : 39 Report #: [id number] THIS REPORT FOR: cc: Ld Reyes MD, Neal A. MD Santiago, Patrick MD [facility] ~ APPROVED REPORT Study performed: 06/11/2020 07:01:50 EXAM: Comprehensive 2D, Doppler, and color-flow Echocardiogram Patient Location: Bedside Room #: 452 Status: routine BSA: 1.61 HR: 100 bpm BP: 113/56 mmHg Rhythm: Tachycardia Other Information Study Quality: Adequate Indications Syncope. 2D Dimensions RVDd: 29.98 mm IVSd: 10.02 (7-11mm) LVOT Diam: 18.89 (18-24mm) LVDd: 43.50 mm PWd: 8.75 (7-11mm) Ascending Ao: 27.01 (22-36mm) LVDs: 32.22 (25-40mm) Aortic Root: 33.92 mm Volumes Left Atrial Volume (Systole) Single Plane 4CH: 41.86 mL Single Plane 2CH: 64.72 mL LA ESV Index: 35.00 mL/m2 Aortic Valve AoV Peak Celestino.: 2.16 m/s AO Peak Gr.: 18.72 mmHg LVOT Max P.23 mmHg AO Mean Gr.: 9.51 mmHg AO V2 Mean: 1.46 m/s LVOT Max V: 1.03 m/s AO V2 VTI: 39.83 cm [facility] [address] [place] [address] TRANSESOPHAGEAL ECHOCARDIOGRAM Name: JENNA VALENCIA Room #: 452-P [facility]#: [id number] Admission: 06/09/20 Attend Phys: Ld Reyes, Discharge: 06/12/20 Date of : 39 Report #: [id number] GALILEO Vmax: 1.33 cm2 Pulmonary Valve PV Peak Celestino.: 0.71 m/s PV Peak Gr.: 2.04 mmHg Tricuspid Valve RAP Estimate: 5.00 mmHg Left Ventricle The left ventricle is normal size. Mild basal septal hypertrophy is present. Left ventricular systolic function is mildly decreased. LVEF is 45-50%. This study is not technically sufficient to allow evaluation of the LV diastolic function. Right Ventricle The right ventricle is normal size. The right ventricular systolic function is normal. Atria Left atrium is mildly dilated. The right atrium size is normal. Aortic Valve Aortic valve is moderately calcified. Mild aortic regurgitation. Mild aortic stenosis. GALILEO by continuity equation is 1.4cm2. Peak pressure gradient of 19mmHg; mean of 9mmHg. Mitral Valve Moderate mitral annular calcification. Mild mitral regurgitation. No evidence of mitral valve stenosis. Tricuspid Valve The tricuspid valve is normal in structure. There is no tricuspid valve regurgitation noted. Unable to assess PA pressure. Pulmonic Valve Pulmonic valve is not well visualized. Great Vessels The aortic root is normal in size. The ascending aorta is normal in size. IVC is normal in size and collapses >50% with inspiration. Pericardium There is no pericardial effusion. [facility] [address] [place] [address] TRANSESOPHAGEAL ECHOCARDIOGRAM Name: JENNA VALENCIA Room #: [address] [place] [address] IN M.R.#: [id number] Admission: 06/09/20 Attend Phys: Ld Reyes, Discharge: 06/12/20 Date of : 39 Report #: [id number] <Conclusion> Normal left ventricular size with mild basal hypertrophy Mild global hypokinesis ejection fraction 4550 % Normal right ventricular size/function Mildly dilated left atrium Color-flow Doppler study was performed of the aortic/mitral/tricuspid/pulmonary valve Aortic valve moderately calcified Mild aortic valve stenosis aortic valve area 1.4 cm and a mean gradient of 9 mmHg Moderate mitral annular calcification Mild mitral valve insufficiency No evidence of tricuspid valve insufficiency Normal aortic root size Normal IVC size and response to respiration No pericardial effusion <ELECTRONICALLY SIGNED> By: Philippe Simeon MD, [facility] 06/24/20 1517 837 6 Philippe Simeon MD, FACC /INF
== END 2020-06-12 15:16 | disposition home health service (06) | DRG 314 ==
LOC: ER 15:03 → EROBS 17:18 → 4W 17:18
PROVIDERS: Emergency Medicine; Hospitalist; ADMIT Family Medicine; ATTEND Family Medicine
DX: I95.9 Hypotension, unspecified (principal); N17.0 Acute kidney failure with tubular necrosis; G93.41 Metabolic encephalopathy; G45.9 Transient cerebral ischemic attack, unspecified; E87.6 Hypokalemia; E83.42 Hypomagnesemia; F03.90 Unspecified dementia, unspecified severity, without behavioral disturbance, psychotic disturbance, mood disturbance, and anxiety; R55 Syncope and collapse; Z90.49 Acquired absence of other specified parts of digestive tract; Z90.13 Acquired absence of bilateral breasts and nipples; Z87.01 Personal history of pneumonia (recurrent); Z79.899 Other long term (current) drug therapy
CPT/HCPCS: 10045

== ENCOUNTER 2020-06-16 15:50 | Inpatient (IN) | payer OTHER, BC ==
[~2020-06-16] VITALS: Ht 152.4 cm; Wt 58.6 kg
[~2020-06-16 15:50] MED LIST changes: +ARICEPT10 M1 PO
[2020-06-16 15:51] VITALS: BP 136/67
[2020-06-16 16:26] LABS: BASOPHILS 0.7 % (0.0-2.0); EOSINOPHILS 1.5 % (0.0-3.0); HEMOGLOBIN 10.3 gm/dL (12.0-15.0); LYMPHOCYTES 23.9 % (24.0-44.0); MCH 30.6 pg (26.0-34.0); MCHC 33.2 g/dL (28.0-37.0); MCV 92.2 fL (80.0-100.0); MONOCYTES 8.9 % (1.0-8.0); RBC 3.37 mil/uL (4.20-5.00); WBC 6.1 thou/uL (4.0-11.0)
[2020-06-16 16:33] LABS: ALBUMIN 2.9 g/dL (3.4-5.0); CREATININE 1.1 mg/dL (0.6-1.0); TOTAL BILIRUBIN 0.7 mg/dL (0.2-1.0); TOTAL PROTEIN 7.1 g/dL (6.4-8.2)
[2020-06-16 16:37] LABS: POTASSIUM 2.7 mmol/L (3.5-5.1)
[2020-06-16 16:38] LABS: URINE BILIRUBIN NEGATIVE (Negative); URINE BLOOD NEGATIVE (Negative); URINE CLARITY CLEAR; URINE COLOR YELLOW; URINE GLUCOSE-RANDOM* NEGATIVE (Negative); URINE KETONES TRACE (Negative); URINE LEUKOCYTES-REFLEX NEGATIVE (Negative); URINE NITRITE-REFLEX NEGATIVE (Negative); URINE PROTEIN (DIPSTICK) TRACE (Negative)
[2020-06-16 17:40] LABS: PLATELET COUNT 278 thou/uL (150-400)
[2020-06-16] MEDS ORDERED: ARICEPT10 M1 PO (17:45)
--- NOTE | 2020-06-16 19:06 | NUR ---
AT 1850, PT ARRIVED TO ROOM 204 VIA STRETCHER FROM ER. PT ASSISTED TO BED X 3 STAFF W/ MAX ASSIST. REMOTE TELEMETRY PLACED ON PT. CALL LIGHT PLACED WITHIN PT REACH. BED ALARM ACTIVATED. IV RAC WITH BLOOD BACKED UP INTO TUBING. IV FLUSHED EASILY. PT IS CONFUSED TO PLACE, TIME AND SITUATION. REORIENTED TO HOSPITAL, TIME OF DAY, AND SITUATION.
[2020-06-16 20:00] VITALS: BP 118/67; BP 152/75
--- NOTE | 2020-06-16 21:54 | NUR ---
admitted to the floor around 1999, pt is awake, very confused and yelling for help, admission assessment, history completed, sr on the monitor, denies pain or any concerns, incontinent of bladder, fall precautions on place, will continue to monitor and follow poc
[2020-06-17 00:15] VITALS: BP 112/74
[2020-06-17 04:45] VITALS: BP 151/73; BP 153/75
[2020-06-17 05:56] LABS: HEMATOCRIT 29.6 % (37.0-47.0); HEMOGLOBIN 9.9 gm/dL (12.0-15.0); MCH 30.9 pg (26.0-34.0); MCHC 33.6 g/dL (28.0-37.0); MCV 92.2 fL (80.0-100.0); RBC 3.21 mil/uL (4.20-5.00); RDW 16.2 % (10.5-14.5)
[2020-06-17 06:26] LABS: CALCIUM 8.5 mg/dL (8.5-10.1); CREATININE 0.8 mg/dL (0.6-1.0)
[2020-06-17 06:34] LABS: POTASSIUM 2.7 mmol/L (3.5-5.1)
--- NOTE | 2020-06-17 07:06 | EKG ---
[address] [address] ELECTROCARDIOGRAM REPORT Name: JENNA VALENCIA Room #: 204-P [facility] IN M.R.#: [id number] Admission: 06/16/20 Attend Phys: Ld Reyes MD Discharge: 06/18/20 Date of : 39 Report #: [id number] [facility] ED Test Date: 2020-06-16 Test Time: 17:00:00 Pat Name: JENNA VALENCIA Department: Room: 204 Gender: F Scrap Breaker: JEFERSON : 1935 Requested By: Timmy Stone Order Number: [id number] MD: Philippe Simeon Measurements Intervals Barlow Rate: 83 P: 34 NV: 167 QRS: -11 QRSD: 97 T: 91 QT: 381 QTc: 448 Interpretive Statements Sinus rhythm LVH with secondary repolarization abnormality Anterior Q waves, possibly due to LVH Compared to ECG 03/06/2019 00:32:46 Q waves now present Myocardial infarct finding no longer present Electronically Signed On 06-17-2020 7:05:56 CDT by Philippe Simeon [email or web address] <ELECTRONICALLY SIGNED> By: Philippe Simeon MD, FACC 06/17/20 0705 170 99 Philippe Simeon MD, FAC /EPI
[2020-06-17 08:08] VITALS: BP 152/69
[2020-06-17 11:31] VITALS: BP 126/58
--- NOTE | 2020-06-17 12:42 | NUR ---
DAUGHTER AT BEDSIDE, PT ALERT TO PERSON AND PLACE AT THIS TIME, PT SHOWS NO SIGNS OF DISTRESS AND DENIES PAIN, DAUGHTER MENTIONED THAT SHE WOULD POSSIBLY NEED TO TALK ABOUT [facility]PT [facility] V[facility] TAKING HER HOME SINCE ITS JUST HER AND HER BROTHER CARING FOR HER AND THAT SOMETIMES ITS VERY DIFFICULT TO GET HER TO EAT AND DRINK AT HOME. PT HAS ATE 100% OF BREAKFAST AND LUNCH THIS SHIFT AND FLUIDS HAVE BEEN ENCOURAGED. PT INCONTENT OF B&B PREWIC BEING USED FOR BLADDER INCONT D/T GAULDING IN JUAN A AREA. CREAM APPLIED AND PT TOLERATED WELL. CALL LIGHT IN REACH AND REFRESHMENTS PROVIDED AT THIS TIME.
--- NOTE | 2020-06-17 14:41 | NUR ---
Met with patient who was sleeping, dtr at bedside. Patient resides with dtr and son in home. All needs on one level. 2-3 steps to enter to home. Dtr reports she works during the day. Son works from home and is avail. Dtr reports at recent dc from hospital she had difficulty getting patient in the home. She requests assistance with transport at dc as she called [facility]. Dtr reports for past month increase weakness. Patient would walk small distances in home. She has a rolator walker but at times does not use. Installed railing in home for patient. dtr assists with transfers from bed to commode and bathing assistance. She reports recent new HH care [facility] has started. Discussed post acute care and dtr would like to try home with HH. She will discuss with her brother. She has medicare post acute care list to review. PCP Dr Reyes.
[2020-06-17 15:10] VITALS: BP 132/67
--- NOTE | 2020-06-17 18:27 | NUR ---
PT RESTING AT THIS TIME WITH EYES CLOSED IN BED, RESPIRATIONS EVEN AND UNLABORED. VS WNL. PT SHOWS NO SIGNS OF DISTRESS AT THIS TIME, CALL LIGHT IN REACH.
[2020-06-17 19:33] VITALS: BP 111/55
[2020-06-18 04:31] VITALS: BP 149/79
--- NOTE | 2020-06-18 05:24 | NUR ---
ASSUMED CARE AT 1900, AWAKE, ALERT AND ORIENTED, ASSESSMENTS CHARTED, VSS, NO ACUTE DISTRESS NOTED, SLEPT MOST OF THE NIGHT, WILL CONTINUE TO MONITOR AND FOLLOW POC
[2020-06-18 06:31] LABS: ALBUMIN 2.8 g/dL (3.4-5.0); CALCIUM 8.8 mg/dL (8.5-10.1); CREATININE 0.9 mg/dL (0.6-1.0); PHOSPHORUS 2.9 mg/dL (2.5-4.9); POTASSIUM 4.2 mmol/L (3.5-5.1)
[2020-06-18 07:10] VITALS: BP 155/76
--- NOTE | 2020-06-18 08:22 | NUR ---
ASSUMED PT CARE AT 0700. ASSESSMENT PERFORMED AND CHARTED. OT WANTING TO WORK WITH PATIENT. PT DENIES PAIN. VSS. WILL CONITNUE TO MONITOR.
[2020-06-18 11:12] VITALS: BP 130/71
[2020-06-18 11:20] VITALS: BP 130/71
[2020-06-18] MEDS ORDERED: POTASSIUM20 PO (12:37)
[2020-06-18 12:53] VITALS: BP 130/71
--- NOTE | 2020-06-18 14:06 | NUR ---
FAXED DISCHARGE ORDERS, SUMMARY AND THERAPY NOTES TO [facility]. CONFIRMED WITH [facility] THAT PATIENT IS IN SERVICE WITH THEM AND THEY WILL CONTACT AND CONTINUE SERVICES WITH PATIENT. [facility] P [phone]; FAX [phone]
--- NOTE | 2020-06-18 14:58 | NUR ---
Dc home today with hh discussed with the pt and her dtr Rosemarie at bedside. They are request hh per [facility] as she had them prior to admission. [facility] liason notified and the dc strategic planner will fax them the orders. Pt's dtr also noting difficulty with getting the pt into the home with 3 steps and landing that she is not able to lift her and pt is unable to do steps. w/c van transport vouchered per [facility] at 3-3:30 today to facilitate dc. Future options, portable or permanent ramp options discussed as well w/c van services and cost as calling the fire dept is not a reliable solution. Dtr notes pt has an appt this Monday at [facility] for the [facility] covid vaccine. Boarding House Manager encouraged her to locate assistance for getting pt to and from the appt. They do have a transport chair if they can get a ramp system in place.
== END 2020-06-18 15:49 | disposition home health service (06) | DRG 682 ==
LOC: ER 15:50 → 2N 17:49 → EROBS 17:49 → 2N 17:49
PROVIDERS: Internal Medicine Nephrology; Nurse Practitioner; ADMIT Family Medicine; ATTEND Family Medicine
DX: N17.0 Acute kidney failure with tubular necrosis (principal); G93.41 Metabolic encephalopathy; E87.6 Hypokalemia; N17.9 Acute kidney failure, unspecified; E86.0 Dehydration; E03.9 Hypothyroidism, unspecified; F03.90 Unspecified dementia, unspecified severity, without behavioral disturbance, psychotic disturbance, mood disturbance, and anxiety; R53.81 Other malaise; Z85.3 Personal history of malignant neoplasm of breast; Z90.13 Acquired absence of bilateral breasts and nipples
CPT/HCPCS: 10081